=== PATIENT | male | born 1960 | race Caucasian/White ===

== ENCOUNTER 2018-12-30 10:26 | Emergency (ER) | payer OTHER ==
[2018-12-30] MEDS: SILVER SULFADIAZINE 1% 25 GM CR TOP (11:12)
[2018-12-30] MEDS: KETOROLAC 60 MG INJ IM (11:12)
== END 2018-12-30 13:29 | disposition home or self-care (01) ==
LOC: FTE 10:26
DX: M54.5 Low back pain (principal); M79.641 Pain in right hand; M79.642 Pain in left hand; Z87.891 Personal history of nicotine dependence
CPT/HCPCS: 72072; 72100; 96372; 99284-25

== ENCOUNTER 2019-01-10 10:50 | Emergency (ER) | payer OTHER ==
[2019-01-10] MEDS: SOD CHLORIDE 0.9% 500 ML IV ×2 (12:28→13:15)
[2019-01-10] MEDS: LORAZEPAM 2 MG INJ IV (12:28)
[2019-01-10 12:34] LABS: ADD MAN DIFF? NO
[2019-01-10 12:38] LABS: BASOPHILS % 0.7 % (0.0-2.0); EOSINOPHILS % 0.3 % (0.0-7.0); HEMATOCRIT 40.9 % (42.0-52.0); LYMPHOCYTES # 1.4 10^3/ul (0.8-2.9); LYMPHOCYTES % 22.6 % (15.0-51.0); MEAN CORPUSCULAR HEMOGLOBIN 32.1 pg (29.0-33.0); MEAN CORPUSCULAR HGB CONC 36.7 g/dl (32.0-37.0); MEAN CORPUSCULAR VOLUME 87.4 fl (82.0-101.0); MEAN PLATELET VOLUME 9.7 fl (7.4-10.4); MONOCYTE # 0.4 10^3/ul (0.3-0.9); MONOCYTES % 6.8 % (0.0-11.0); NEUTROPHIL # 4.3 10^3/ul (1.6-7.5); NEUTROPHILS % 69.3 % (39.0-77.0); PLATELET COUNT 315 10^3/UL (140-415); RED BLOOD COUNT 4.68 10^6/ul (4.70-6.10); RED CELL DISTRIBUTION WIDTH 12.1 % (11.5-14.5)
[2019-01-10 12:38] LABS: WHITE BLOOD COUNT 6.1 10^3/ul (4.8-10.8)
[2019-01-10 12:57] LABS: ANION GAP 13 (5-13); BLOOD UREA NITROGEN 7 mg/dl (7-20); CALCIUM 9.1 mg/dl (8.4-10.2); CARBON DIOXIDE 18 mmol/L (21-31); CHLORIDE 93 mmol/L (97-110); CREATININE 0.64 mg/dl (0.61-1.24); Estimated GFR > 60 mL/min (>60); GLUCOSE 189 mg/dl (70-220); POTASSIUM 3.6 mmol/L (3.5-5.1); SODIUM 124 mmol/L (135-144)
[2019-01-10 13:07] LABS: TROPONIN-I < 0.012 ng/ml (0.000-0.120)
== END 2019-01-10 14:07 | disposition home or self-care (01) ==
LOC: E/R 10:50
DX: R55 Syncope and collapse (principal); T43.615A Adverse effect of caffeine, initial encounter; E87.1 Hypo-osmolality and hyponatremia; F41.9 Anxiety disorder, unspecified; F17.210 Nicotine dependence, cigarettes, uncomplicated
CPT/HCPCS: 36415; 71045; 80048; 84484; 85025; 93005; 96361; 96374; 99285-25